=== PATIENT | male | born 1960 | race Caucasian/White ===

== ENCOUNTER 2023-08-25 11:38 | Emergency (ER) | payer OTHER ==
[~2023-08-25] VITALS: Ht 190.5 cm; Wt 193.2 kg
[2023-08-25 12:03] VITALS: BP 139/56; PULSE 102; RESP 24; TEMP 97.8; O2SAT 92
[2023-08-25 12:43] LABS: BASOPHILS % (AUTO) 0.1 % (0.0-2.0); EOSINOPHILS # (AUTO) 0.6 K/uL (0-0.4); EOSINOPHILS % (AUTO) 6.5 % (0.0-4.0); HEMATOCRIT 39.1 % (36-52); HEMOGLOBIN 13.4 g/dL (12.0-18.0); LYMPHOCYTES % (AUTO) 10.9 % (20.5-51.1); MEAN CORPUSCULAR HEMOGLOBIN 30 pg (27-31); MEAN CORPUSCULAR HGB CONC 34 g/dL (33-37); MEAN CORPUSCULAR VOLUME 87.5 fL (80-94); MONOCYTES # (AUTO) 0.5 K/uL (0.8-1.0); MONOCYTES % (AUTO) 5.4 % (1.7-9.3); NEUTROPHILS # (AUTO) 6.9 K/uL (1.8-7.7); NEUTROPHILS % (AUTO) 77.1 % (42.2-75.2); PLATELET COUNT (AUTO) 265 K/uL (140-450); RED BLOOD CELL COUNT(AUTO) 4.47 MIL/uL (4.20-6.10); RED CELL DISTRIBUTION WIDTH 14.7 % (11.6-13.7); WHITE BLOOD COUNT (AUTO) 8.9 K/uL (4.8-10.8)
[2023-08-25 13:03] LABS: ANION GAP 12.4 (8-16); CALCIUM 8.7 mg/dL (8.5-10.1); CREATININE 1.1 mg/dL (0.6-1.3); POTASSIUM 3.4 mmol/L (3.5-5.1)
[2023-08-25] MEDS ORDERED: AMOX-1230 PO (13:24)
[2023-08-25 13:53] VITALS: BP 120/68; PULSE 67; RESP 16; TEMP 98; O2SAT 99
== END 2023-08-25 14:00 | disposition home or self-care (01) ==
LOC: MED 11:38
DX: L03.211 Cellulitis of face (principal); R06.02 Shortness of breath; I10 Essential (primary) hypertension; Z79.899 Other long term (current) drug therapy
CPT/HCPCS: 36415; 71045; 80048; 83880; 84484; 85025; 93005; 99285

== ENCOUNTER 2023-08-27 08:36 | Emergency (ER) | payer OTHER ==
[~2023-08-27] VITALS: Ht 188 cm; Wt 190.5 kg
[~2023-08-27 08:36] MED LIST: AMOX-1230 PO
[2023-08-27 08:41] VITALS: BP 150/92; PULSE 104; RESP 18; TEMP 98.5; O2SAT 94
[2023-08-27] MEDS: EPINEPHrine 1 MG/ML AMP IM ONE (09:26)
[2023-08-27] MEDS: methylPREDNISolone SS 125 MG/2 ML VIAL IVP ONE (09:26)
[2023-08-27 09:27] VITALS: PULSE 89; RESP 20; O2SAT 90
[2023-08-27] MEDS: ALBUTEROL 0.083% 2.5 MG/3 ML NEBU INH ONE (09:27)
[2023-08-27] MEDS: diphenhydrAMINE 50 MG/ML VIAL IVP ONE (09:30)
[2023-08-27] MEDS: FAMOTIDINE 20 MG/2 ML VIAL IVP ONE (09:39)
[2023-08-27] MEDS ORDERED: EPIN1KIT31 IM (12:49)
[2023-08-27] MEDS ORDERED: CLIN300C2 PO (12:49)
[2023-08-27 13:10] VITALS: BP 121/82; PULSE 88; RESP 16; TEMP 98; O2SAT 99
== END 2023-08-27 13:10 | disposition home or self-care (01) ==
LOC: MED 08:36
DX: L03.211 Cellulitis of face (principal); T78.2XXA Anaphylactic shock, unspecified, initial encounter; Z79.899 Other long term (current) drug therapy
CPT/HCPCS: 94640; 96372; 96374; 96375; 99291; J0171; J1200; J2930; J3490; J7613

== ENCOUNTER 2023-11-21 17:44 | Inpatient (IN) | payer OTHER ==
[~2023-11-21] VITALS: Ht 188 cm; Wt 197.0 kg
[~2023-11-21 17:44] MED LIST changes: +CLIN300C2 PO; +EPIN1KIT31 IM
[2023-11-21 18:12] VITALS: BP 152/85; PULSE 144; RESP 24; TEMP 97.4; O2SAT 94
[2023-11-21] MEDS: NACL 0.9% 2,000 ML IV ONE (19:18)
[2023-11-21 19:25] LABS: BASOPHILS % (AUTO) 0.4 % (0.0-2.0); EOSINOPHILS # (AUTO) 0.6 K/uL (0-0.4); EOSINOPHILS % (AUTO) 11.9 % (0.0-4.0); HEMATOCRIT 38.6 % (36-52); HEMOGLOBIN 12.7 g/dL (12.0-18.0); LYMPHOCYTES # (AUTO) 0.9 K/uL (2.0-11.5); LYMPHOCYTES % (AUTO) 18.3 % (20.5-51.1); MEAN CORPUSCULAR HEMOGLOBIN 29 pg (27-31); MEAN CORPUSCULAR HGB CONC 33 g/dL (33-37); MEAN CORPUSCULAR VOLUME 87.5 fL (80-94); MONOCYTES # (AUTO) 0.6 K/uL (0.8-1.0); MONOCYTES % (AUTO) 11.9 % (1.7-9.3); NEUTROPHILS % (AUTO) 57.5 % (42.2-75.2); PLATELET COUNT (AUTO) 218 K/uL (140-450); RED BLOOD CELL COUNT(AUTO) 4.42 MIL/uL (4.20-6.10); RED CELL DISTRIBUTION WIDTH 14.5 % (11.6-13.7); WHITE BLOOD COUNT (AUTO) 5.1 K/uL (4.8-10.8)
[2023-11-21 19:42] LABS: CALCIUM 8.9 mg/dL (8.5-10.1); CARBON DIOXIDE 29.9 mmol/L (21-32); CREATININE 1.2 mg/dL (0.6-1.3); POTASSIUM 3.9 mmol/L (3.5-5.1)
[2023-11-21 19:51] LABS: LACTIC ACID 0.8 mmol/L (0.4-2.0)
[2023-11-21 20:06] LABS: FLU A ANTIGEN negative (NEGATIVE); FLU B ANTIGEN POSITIVE (NEGATIVE)
[2023-11-21] MEDS: OSELTAMIVIR PHOSPHATE 75 MG CAP PO ONE (20:30)
[2023-11-21] MEDS ORDERED: ADENOSINE 6 MG/2 ML VIAL IVP ONE (21:30)
[2023-11-21] MEDS: ADENOSINE 6 MG/2 ML VIAL IVP ONE ×2 (21:37→21:40)
[2023-11-21] MEDS: METOPROLOL 5 MG/5 ML VIAL IVP ONE (21:59)
[2023-11-21] MEDS ORDERED: MAGNESIUM OXIDE 400 MG TAB PO PRN (22:45)
[2023-11-21] MEDS ORDERED: KCL 20 MEQ IN 100 mL PREMIX 200 ML IV PRN (22:45)
[2023-11-21] MEDS ORDERED: MAG SULF 2000 MG/WATER PREMIX 50 ML IV PRN (22:45)
[2023-11-21] MEDS ORDERED: MORPHINE SULFATE 2 MG/ML SYR IVP PRN (22:45)
[2023-11-21] MEDS ORDERED: POTASSIUM CHLORIDE 10 MEQ TABER PO PRN (22:45)
[2023-11-21] MEDS ORDERED: ONDANSETRON 4 MG/2 ML VIAL IVP PRN (22:45)
[2023-11-21] MEDS ORDERED: HYDROcodone/APAP 5/325 MG 1 TAB TAB PO PRN (22:45)
[2023-11-21] MEDS ORDERED: remdesivir COMMUNICATION ORDER 1 EA MISC MC PRN (22:50)
[2023-11-21] MEDS: METOPROLOL 5 MG/5 ML VIAL IVP PRN (23:49)
[2023-11-22 07:11] LABS: BASOPHILS % (AUTO) 0.2 % (0.0-2.0); EOSINOPHILS # (AUTO) 0.5 K/uL (0-0.4); EOSINOPHILS % (AUTO) 8.6 % (0.0-4.0); HEMATOCRIT 37.2 % (36-52); HEMOGLOBIN 12.2 g/dL (12.0-18.0); LYMPHOCYTES % (AUTO) 15.4 % (20.5-51.1); MEAN CORPUSCULAR HEMOGLOBIN 29 pg (27-31); MEAN CORPUSCULAR HGB CONC 33 g/dL (33-37); MEAN CORPUSCULAR VOLUME 87.6 fL (80-94); MONOCYTES # (AUTO) 0.7 K/uL (0.8-1.0); MONOCYTES % (AUTO) 11.7 % (1.7-9.3); NEUTROPHILS % (AUTO) 64.1 % (42.2-75.2); PLATELET COUNT (AUTO) 209 K/uL (140-450); RED BLOOD CELL COUNT(AUTO) 4.25 MIL/uL (4.20-6.10); RED CELL DISTRIBUTION WIDTH 14.6 % (11.6-13.7); WHITE BLOOD COUNT (AUTO) 6.2 K/uL (4.8-10.8)
[2023-11-22 07:44] LABS: ALBUMIN 3.1 g/dL (3.4-5.0); ANION GAP 8.6 (8-16); CALCIUM 8.4 mg/dL (8.5-10.1); CARBON DIOXIDE 30.1 mmol/L (21-32); CREATININE 1.1 mg/dL (0.6-1.3); MAGNESIUM 1.9 mg/dL (1.8-2.4); POTASSIUM 3.7 mmol/L (3.5-5.1); TOTAL BILIRUBIN 0.4 mg/dL (0.0-1.0); TOTAL PROTEIN, SERUM 7.1 g/dL (6.4-8.2)
[2023-11-22] MEDS: MEDS-TO-BEDS MC SCH (09:00)
[2023-11-22] MEDS ORDERED: remdesivir CLINICAL MONITORING 1 EA MISC MC PRN (09:00)
[2023-11-22 11:23] LABS: ALBUMIN 3.2 g/dL (3.4-5.0); ANION GAP 8.2 (8-16); CALCIUM 8.6 mg/dL (8.5-10.1); CARBON DIOXIDE 30.7 mmol/L (21-32); CREATININE 1.1 mg/dL (0.6-1.3); POTASSIUM 3.9 mmol/L (3.5-5.1); TOTAL BILIRUBIN 0.3 mg/dL (0.0-1.0); TOTAL PROTEIN, SERUM 7.2 g/dL (6.4-8.2)
[2023-11-22 12:00] VITALS: BP 151/105; PULSE 136; PULSE 137; RESP 22; TEMP 98.6; O2SAT 95
[2023-11-22 12:10] VITALS: PULSE 134; RESP 23; O2SAT 95
[2023-11-22] MEDS: REMDESIVIR. 200 MG in NACL 0.9% 100 ML IV SCH (12:12)
[2023-11-22] MEDS: DEXAMETHASONE 4 MG/ML VIAL IVP SCH (12:13)
[2023-11-22] MEDS: OSELTAMIVIR PHOSPHATE 75 MG CAP PO SCH (12:13)
[2023-11-22] MEDS: METOPROLOL 25 MG TAB PO SCH (12:13)
[2023-11-22 16:00] VITALS: BP 142/96; PULSE 131; PULSE 138; RESP 20; TEMP 98.5; O2SAT 95
[2023-11-22] MEDS: DIGOXIN 0.25 MG/ML AMP IV SCH ×2 (17:03→23:04)
[2023-11-22] MEDS: AMIODARONE 200 MG TAB PO SCH ×2 (17:04→21:51)
[2023-11-22] MEDS: APIXABAN 2.5 MG TAB PO SCH ×2 (17:05→21:53)
[2023-11-22 20:00] VITALS: BP 144/87; PULSE 135; PULSE 138; RESP 20; TEMP 96.2; O2SAT 95
[2023-11-22] MEDS ORDERED: remdesivir COMMUNICATION ORDER 1 EA MISC MC SCH (21:20)
[2023-11-22] MEDS: METOPROLOL 50 MG TAB PO SCH (21:50)
[2023-11-22] MEDS: ZOLPIDEM 5 MG TAB PO PRN (21:59)
[2023-11-22 22:31] VITALS: PULSE 138; RESP 20; O2SAT 95
[2023-11-22] MEDS: FUROSEMIDE 20 MG/2 ML VIAL IVP SCH (23:04)
[2023-11-23] VITALS (10 sets, daily range): BP systolic 136–176; BP diastolic 80–112; PULSE 84–154; RESP 20–24; TEMP 96.7–98.5; O2SAT 92–96
[2023-11-23] MEDS: DIGOXIN 0.25 MG/ML AMP IV SCH (04:47)
[2023-11-23 07:13] LABS: BASOPHILS % (AUTO) 0.1 % (0.0-2.0); EOSINOPHILS % (AUTO) 0.5 % (0.0-4.0); HEMATOCRIT 37.9 % (36-52); HEMOGLOBIN 12.4 g/dL (12.0-18.0); LYMPHOCYTES # (AUTO) 1.1 K/uL (2.0-11.5); LYMPHOCYTES % (AUTO) 14.4 % (20.5-51.1); MEAN CORPUSCULAR HEMOGLOBIN 29 pg (27-31); MEAN CORPUSCULAR HGB CONC 33 g/dL (33-37); MEAN CORPUSCULAR VOLUME 87.6 fL (80-94); MONOCYTES # (AUTO) 0.4 K/uL (0.8-1.0); MONOCYTES % (AUTO) 5.5 % (1.7-9.3); NEUTROPHILS # (AUTO) 5.9 K/uL (1.8-7.7); NEUTROPHILS % (AUTO) 79.5 % (42.2-75.2); PLATELET COUNT (AUTO) 213 K/uL (140-450); RED BLOOD CELL COUNT(AUTO) 4.32 MIL/uL (4.20-6.10); RED CELL DISTRIBUTION WIDTH 14.7 % (11.6-13.7); WHITE BLOOD COUNT (AUTO) 7.4 K/uL (4.8-10.8)
[2023-11-23 07:14] LABS: ALBUMIN 3.2 g/dL (3.4-5.0); CALCIUM 8.8 mg/dL (8.5-10.1); CARBON DIOXIDE 30.1 mmol/L (21-32); CREATININE 1.2 mg/dL (0.6-1.3); MAGNESIUM 1.9 mg/dL (1.8-2.4); POTASSIUM 4.1 mmol/L (3.5-5.1); TOTAL BILIRUBIN 0.4 mg/dL (0.0-1.0); TOTAL PROTEIN, SERUM 7.5 g/dL (6.4-8.2)
[2023-11-23] MEDS ORDERED: remdesivir CLINICAL MONITORING 1 EA MISC MC PRN (08:15)
[2023-11-23] MEDS ORDERED: ENOXAPARIN 40 MG/0.4 ML SYR SUBQ SCH (09:00)
[2023-11-23] MEDS ORDERED: REMDESIVIR. 100 MG in NACL 0.9% 100 ML IV SCH (09:00)
[2023-11-23] MEDS: REMDESIVIR. 100 MG in NACL 0.9% 100 ML IV SCH (10:18)
[2023-11-23 11:04] LABS: ALBUMIN 3.2 g/dL (3.4-5.0); CALCIUM 8.7 mg/dL (8.5-10.1); CARBON DIOXIDE 28.1 mmol/L (21-32); CREATININE 1.2 mg/dL (0.6-1.3); POTASSIUM 4.1 mmol/L (3.5-5.1); TOTAL BILIRUBIN 0.4 mg/dL (0.0-1.0); TOTAL PROTEIN, SERUM 7.5 g/dL (6.4-8.2)
[2023-11-23] MEDS: ACETAMINOPHEN 325 MG TAB PO PRN (20:53)
[2023-11-24] VITALS (8 sets, daily range): BP systolic 125–180; BP diastolic 77–117; PULSE 64–109; RESP 18–24; TEMP 96.3–97.4; O2SAT 90–96
[2023-11-24 07:28] LABS: EOSINOPHILS # (AUTO) 0.2 K/uL (0-0.4); EOSINOPHILS % (AUTO) 2.8 % (0.0-4.0); HEMATOCRIT 39.9 % (36-52); HEMOGLOBIN 13.1 g/dL (12.0-18.0); LYMPHOCYTES # (AUTO) 1.7 K/uL (2.0-11.5); LYMPHOCYTES % (AUTO) 21.5 % (20.5-51.1); MEAN CORPUSCULAR HEMOGLOBIN 29 pg (27-31); MEAN CORPUSCULAR HGB CONC 33 g/dL (33-37); MEAN CORPUSCULAR VOLUME 87.5 fL (80-94); MONOCYTES # (AUTO) 0.8 K/uL (0.8-1.0); MONOCYTES % (AUTO) 9.7 % (1.7-9.3); NEUTROPHILS # (AUTO) 5.1 K/uL (1.8-7.7); PLATELET COUNT (AUTO) 224 K/uL (140-450); RED BLOOD CELL COUNT(AUTO) 4.56 MIL/uL (4.20-6.10); RED CELL DISTRIBUTION WIDTH 14.4 % (11.6-13.7); WHITE BLOOD COUNT (AUTO) 7.8 K/uL (4.8-10.8)
[2023-11-24 07:41] LABS: ALBUMIN 3.4 g/dL (3.4-5.0); CALCIUM 8.9 mg/dL (8.5-10.1); CARBON DIOXIDE 31.9 mmol/L (21-32); CREATININE 1.2 mg/dL (0.6-1.3); POTASSIUM 3.9 mmol/L (3.5-5.1); TOTAL BILIRUBIN 0.5 mg/dL (0.0-1.0); TOTAL PROTEIN, SERUM 7.6 g/dL (6.4-8.2)
[2023-11-24] MEDS: DIGOXIN 0.25 MG TAB PO SCH (09:55)
[2023-11-24 10:11] LABS: CALCIUM 8.1 mg/dL (8.5-10.1); POTASSIUM 3.8 mmol/L (3.5-5.1); TOTAL BILIRUBIN 0.5 mg/dL (0.0-1.0)
[2023-11-24 10:22] LABS: ANION GAP 11.3 (8-16); CARBON DIOXIDE 26.5 mmol/L (21-32)
[2023-11-24 10:44] LABS: CREATININE 0.8 mg/dL (0.6-1.3)
[2023-11-24] MEDS: METOPROLOL SUCCINATE 50 MG TABER PO ONE (17:50)
[2023-11-24] MEDS: AMIODARONE 200 MG TAB PO SCH (20:33)
[2023-11-24] MEDS: METOPROLOL 50 MG TAB PO SCH (20:37)
[2023-11-25] VITALS (8 sets, daily range): BP systolic 139–168; BP diastolic 90–101; PULSE 68–95; RESP 18; TEMP 96.7–98; O2SAT 90–98
[2023-11-25 06:43] LABS: BASOPHILS % (AUTO) 0.2 % (0.0-2.0); EOSINOPHILS % (AUTO) 0.1 % (0.0-4.0); HEMATOCRIT 41.4 % (36-52); HEMOGLOBIN 13.6 g/dL (12.0-18.0); LYMPHOCYTES # (AUTO) 1.3 K/uL (2.0-11.5); LYMPHOCYTES % (AUTO) 12.9 % (20.5-51.1); MEAN CORPUSCULAR HEMOGLOBIN 29 pg (27-31); MEAN CORPUSCULAR HGB CONC 33 g/dL (33-37); MEAN CORPUSCULAR VOLUME 86.8 fL (80-94); MONOCYTES # (AUTO) 0.8 K/uL (0.8-1.0); MONOCYTES % (AUTO) 7.9 % (1.7-9.3); NEUTROPHILS # (AUTO) 7.9 K/uL (1.8-7.7); NEUTROPHILS % (AUTO) 78.9 % (42.2-75.2); PLATELET COUNT (AUTO) 234 K/uL (140-450); RED BLOOD CELL COUNT(AUTO) 4.77 MIL/uL (4.20-6.10); RED CELL DISTRIBUTION WIDTH 14.2 % (11.6-13.7)
[2023-11-25 07:05] LABS: ALBUMIN 3.4 g/dL (3.4-5.0); ANION GAP 6.3 (8-16); CALCIUM 9.2 mg/dL (8.5-10.1); CARBON DIOXIDE 33.7 mmol/L (21-32); CREATININE 1.3 mg/dL (0.6-1.3); TOTAL BILIRUBIN 0.4 mg/dL (0.0-1.0); TOTAL PROTEIN, SERUM 7.9 g/dL (6.4-8.2)
[2023-11-25 10:45] LABS: ALBUMIN 3.5 g/dL (3.4-5.0); ANION GAP 9.3 (8-16); CALCIUM 9.1 mg/dL (8.5-10.1); CARBON DIOXIDE 32.4 mmol/L (21-32); CREATININE 1.3 mg/dL (0.6-1.3); POTASSIUM 3.7 mmol/L (3.5-5.1); TOTAL BILIRUBIN 0.4 mg/dL (0.0-1.0); TOTAL PROTEIN, SERUM 7.9 g/dL (6.4-8.2)
[2023-11-25] MEDS ORDERED: AMLO-3 PO (13:36)
[2023-11-25] MEDS ORDERED: DIGO-81 PO (13:36)
[2023-11-25] MEDS ORDERED: APIX2.5 PO (13:36)
[2023-11-25] MEDS ORDERED: AMIO200T10 PO (13:36)
[2023-11-25] MEDS ORDERED: METO50TA99 PO (13:36)
[2023-11-25] MEDS ORDERED: TAM75 PO (13:39)
[2023-11-25] MEDS: amLODIPine 5 MG TAB PO SCH (15:24)
== END 2023-11-25 16:00 | disposition home or self-care (01) | DRG 137 ==
LOC: MED 17:44 → MTU 22:45
PROVIDERS: ADMIT Hospitalist; ATTEND Hospitalist
PROC: XW033E5 Introduction of Remdesivir Anti-infective into Peripheral Vein, Percutaneous Approach, New Technology Group 5 (ICD-10-PCS; principal; 2023-11-23)
DX: U07.1 COVID-19 (principal); J96.01 Acute respiratory failure with hypoxia; I50.33 Acute on chronic diastolic (congestive) heart failure; R65.10 Systemic inflammatory response syndrome (SIRS) of non-infectious origin without acute organ dysfunction; I48.92 Unspecified atrial flutter; I11.0 Hypertensive heart disease with heart failure; Z68.43 Body mass index [BMI] 50.0-59.9, adult; J10.1 Influenza due to other identified influenza virus with other respiratory manifestations; E66.01 Morbid (severe) obesity due to excess calories; Z79.899 Other long term (current) drug therapy; Z28.310 Unvaccinated for COVID-19
CPT/HCPCS: 36415; 71045; 80048; 80053; 83605; 83735; 83880; 84484; 85025; 85379; 87040; 87081; 93005; 93970; 96361; 96374; 96375; 96376; 99285; J0153; J1100; J1160; J1940; J3490; Q0092

== ENCOUNTER 2024-02-26 13:34 | Emergency (ER) | payer OTHER ==
[~2024-02-26] VITALS: Ht 188 cm; Wt 192.8 kg
[2024-02-26] MEDS: ALBUTEROL HFA MDI 90 MCG/ACTUATION 8 GM INH ONE (13:30)
[~2024-02-26 13:34] MED LIST changes: +AMIO200T10 PO; +AMLO-3 PO; -AMOX-1230 PO; +APIX2.5 PO; -CLIN300C2 PO; +DIGO-81 PO; +METO50TA99 PO; +TAM75 PO
[2024-02-26 13:45] VITALS: BP 108/70; PULSE 138; RESP 25; TEMP 97.4; O2SAT 95
[2024-02-26 14:58] LABS: FLU A ANTIGEN negative (NEGATIVE); FLU B ANTIGEN negative (NEGATIVE)
[2024-02-26 14:59] LABS: BLOOD GAS PCO2 34.6 mmHg (35.0-48.0); BLOOD GAS PH 7.445 (7.350-7.450); BLOOD GAS PO2 94.8 mmHg (83.0-108.0)
[2024-02-26 15:00] LABS: BLOOD GAS BASE EXCESS -0.3 mmol/L (-2.0-3.0); BLOOD GAS HCO3 23.2 mmol/L (21.0-28.0); BLOOD GAS O2 SAT% 97.8 % (94.0-98.0); FRACTIONATED INSPIRED OXYGEN 0.21 % (0.21-100.00)
[2024-02-26 15:15] LABS: EOSINOPHILS # (AUTO) 0.3 K/uL (0-0.4); LYMPHOCYTES # (AUTO) 0.8 K/uL (2.0-11.5); MEAN CORPUSCULAR HEMOGLOBIN 28 pg (27-31); MEAN CORPUSCULAR HGB CONC 32 g/dL (33-37)
[2024-02-26 15:40] LABS: INR 1.1 (0.8-1.2); PARTIAL THROMBOPLASTIN TIME 22.7 secs (22-35.6); PROTHROMBIN TIME 11.4 secs (10.8-13.4)
[2024-02-26 15:41] LABS: ANION GAP 8.8 (8-16); CALCIUM 8.5 mg/dL (8.5-10.1); CARBON DIOXIDE 29.4 mmol/L (21-32); CREATININE 1.1 mg/dL (0.6-1.3); POTASSIUM 4.2 mmol/L (3.5-5.1)
[2024-02-26 15:43] LABS: HEMOGLOBIN 12.3 g/dL (12.0-18.0); RED BLOOD CELL COUNT(AUTO) 4.34 MIL/uL (4.20-6.10); WHITE BLOOD COUNT (AUTO) 5.8 K/uL (4.8-10.8)
[2024-02-26 15:44] LABS: HEMATOCRIT 38.2 % (36-52); LYMPHOCYTES % (AUTO) 14.4 % (20.5-51.1); MEAN CORPUSCULAR VOLUME 87.9 fL (80-94); NEUTROPHILS % (AUTO) 69.4 % (42.2-75.2); PLATELET COUNT (AUTO) 126 K/uL (140-450); RED CELL DISTRIBUTION WIDTH 17.7 % (11.6-13.7)
[2024-02-26 15:45] LABS: EOSINOPHILS % (AUTO) 5.9 % (0.0-4.0); MONOCYTES # (AUTO) 0.6 K/uL (0.8-1.0); MONOCYTES % (AUTO) 10.3 % (1.7-9.3); NEUTROPHILS # (AUTO) 4.1 K/uL (1.8-7.7)
[2024-02-26 15:48] LABS: ALANINE AMINOTRANSFERASE 7 U/L (12-78); ALBUMIN 2.6 g/dL (3.4-5.0); ALKALINE PHOSPHATASE 85 U/L (50-136); ASPARTATE AMINOTRANSFERASE 15 U/L (15-37); BILIRUBIN,DIRECT 0.2 mg/dL (0.0-0.3); TOTAL BILIRUBIN 0.8 mg/dL (0.0-1.0); TOTAL PROTEIN, SERUM 7.1 g/dL (6.4-8.2)
[2024-02-26 16:08] LABS: LACTIC ACID 1.2 mmol/L (0.4-2.0)
[2024-02-26 16:31] LABS: APPEARANCE,URINE CLEAR (CLEAR); BILIRUBIN,URINE 1+ (NEGATIVE); BLOOD, URINE NEGATIVE (NEGATIVE); COLOR,URINE YELLOW (YELLOW); LEUKOCYTE ESTERASE ,URINE NEGATIVE (NEGATIVE); NITRITE, URINE NEGATIVE (NEGATIVE); PROTEIN,URINE 2+ (NEGATIVE); UGLUCOSE NEGATIVE (NEGATIVE)
[2024-02-26] MEDS ORDERED: ALBU0.0912 IH (16:31)
[2024-02-26] MEDS ORDERED: PRED20TA5 PO (16:31)
[2024-02-26] MEDS ORDERED: INHA1SPA MC (16:32)
[2024-02-26] MEDS ORDERED: PROM118S6 PO (16:32)
[2024-02-26 16:39] LABS: ICTOTEST NEGATIVE (NEGATIVE)
[2024-02-26 16:40] VITALS: BP 102/49; PULSE 135; RESP 25; TEMP 36.33624; O2SAT 95
[2024-02-26 16:41] LABS: BACTERIA,URINE FEW /HPF (None Seen); MUCUS,URINE 1+ /LPF (None Seen); SQUAMOUS EPITHELIAL CELL,UR 0-3 (FEW) /LPF (0-3 (FEW))
[2024-02-26 16:42] LABS: RBC,URINE 0-5 /HPF (0-5); WBC,URINE 0-5 /HPF (0-5)
[2024-02-26 16:43] LABS: HYALINE CASTS, URINE 0-10 /LPF (None Seen)
== END 2024-02-26 16:40 | disposition home or self-care (01) ==
LOC: MED 13:34
DX: B34.9 Viral infection, unspecified (principal); R60.0 Localized edema; I10 Essential (primary) hypertension; E66.9 Obesity, unspecified; D69.6 Thrombocytopenia, unspecified; Z20.822 Contact with and (suspected) exposure to COVID-19; Z98.890 Other specified postprocedural states; E88.09 Other disorders of plasma-protein metabolism, not elsewhere classified; Z79.899 Other long term (current) drug therapy; Z79.01 Long term (current) use of anticoagulants
CPT/HCPCS: 36415; 71045; 80048; 80076; 81001; 83605; 83880; 84484; 85025; 85379; 85610; 85730; 87040; 87086; 87426; 87804; 93005; 94640; 99285; J3535